=== PATIENT | female | born 1970 | race Two or more races ===

== ENCOUNTER 2023-10-22 05:25 | Day surgery (SDC) | payer OTHER ==
[~2023-10-22 05:25] MED LIST: AMITRIPTYLINE100 MG PO; BUTALBITAL-ACE1 EACH PO; CELEBREX200MG PO; CLONAZEPAM1 MG PO; EFFEXOR XR75 MG PO; NEURONTIN800 MG PO; PEPCID AC20 MG; ZANAFLEX6 MG PO
== END 2023-10-22 11:10 | disposition home or self-care (01) ==
LOC: CIR.AMB 05:25
PROVIDERS: ATTEND Surgery Surgery of the Hand
DX: M65.842 Other synovitis and tenosynovitis, left hand (principal); Z20.822 Contact with and (suspected) exposure to COVID-19; Z91.041 Radiographic dye allergy status

== ENCOUNTER 2023-12-24 05:45 | Day surgery (SDC) | payer OTHER ==
[~2023-12-24 05:45] MED LIST changes: +AMBIEN5 MG
[2023-12-24] MEDS ORDERED: CEFAZOLIN SODIUM 1,000 MG VIAL ONE (08:29)
[2023-12-24] MEDS ORDERED: CEFAZOLIN SODIUM 1,000 MG VIAL IV ONE (13:15)
== END 2023-12-24 14:55 | disposition home or self-care (01) ==
LOC: CIR.AMB 05:45
PROVIDERS: ATTEND Surgery Surgery of the Hand
DX: M65.841 Other synovitis and tenosynovitis, right hand (principal); M67.831 Other specified disorders of synovium, right wrist; Z88.8 Allergy status to other drugs, medicaments and biological substances